=== PATIENT | female | born 1975 | race Caucasian/White ===

== ENCOUNTER 2017-08-19 22:52 | Emergency (ER) | payer OTHER ==
[2017-08-19 23:08] VITALS: BMI 18.6
--- NOTE | 2017-08-20 00:17 | PDOC ---
History of Present Illness - General History Source: Patient Exam Limitations: No Limitations <Heidi Mattson - Last Filed: 08/20/17 00:47> - History of Present Illness Initial Comments: 08/20/17 00:17 42yo F who presents to the ED via EMS after she felt weak. She states she is on a "water fast" on day 20 of her usual 30-40 days when she was talking with friends and felt weak. Her friends became concerned and called the ambulance which brought her here. Pt endorses some lightheadedness and weakness currently. Pt states she is [employer] and normally worships with these water fasts and has done so in the past. Pt reluctant to stay, however is okay with some basic labs for assessment of her sodium and electrolytes. Denies any headache, SOB, CP/discomfort, abdominal pain, dysuria, and polyuria. She denies wanting to hurt herself or others. <Doug Marino - Last Filed: 08/20/17 05:06> - General Chief Complaint: Loss of Appetite Stated Complaint: WEAKNESS Time Seen by Provider: 08/20/17 00:09 Past History <SrinivasanHeidi - Last Filed: 08/20/17 00:47> - Past Medical History Anemia: No Asthma: No Dementia: No Diabetes: No GI Disorders: No Disorders: No Liver Disease: No Seizures: No Thyroid Disease: No - Suicide/Smoking/Psychosocial Hx Smoking History: Never smoked Have you smoked in the past 12 months: No Information on smoking cessation initiated: No Hx Alcohol Use: No Drug/Substance Use Hx: No Substance Use Type: None Hx Substance Use Treatment: No <Doug Marino - Last Filed: 08/20/17 05:06> - Past Medical History Allergies/Adverse Reactions: Allergies Allergy/AdvReac Type Severity Reaction Status Date / Time No Known Allergies Allergy Verified 08/19/17 23:08 Home Medications: Ambulatory Orders NK [No Known Home Medication] 08/22/15 Review of Systems - Review of Systems Constitutional: Yes: Weakness, Other (Significant weight loss). No: Chills, Fever, Night Sweats HEENTM: No: Blurred Vision, Nose Congestion, Throat Pain Respiratory: No: Cough, Shortness of Breath, Wheezing Cardiac (ROS): Yes: Lightheadedness. No: Chest Pain, Palpitations, Syncope, Chest Tightness ABD/GI: No: Abdominal Distended, Constipated, Nausea, Vomiting, Abdominal cramping : No: Dysuria, Frequency, Hematuria Musculoskeletal: No: Back Pain, Neck Pain Psychiatric: No: Anxiety, Depression, Frequent Crying, Stressors <Doug Marino - Last Filed: 08/20/17 05:06> *Physical Exam - Vital Signs Last Vital Signs Temp Pulse Resp BP Pulse Ox 97.5 F L 92 H 16 114/78 98 08/19/17 23:01 08/19/17 23:01 08/19/17 23:01 08/19/17 23:01 08/19/17 23:01 <Heidi Mattson - Last Filed: 08/20/17 00:47> - Vital Signs Last Vital Signs Temp Pulse Resp BP Pulse Ox 97.5 F L 92 H 16 114/78 98 08/19/17 23:01 08/19/17 23:01 08/19/17 23:01 08/19/17 23:01 08/19/17 23:01 - Physical Exam Comments: 08/20/17 00:29 GEN: NAD, awake, alert and oriented x3, cachectic HEENT: EOMI, VELVET, sclera anicterica, moist mucosa NECK: No JVD LUNGS: CTA b/l CARDIAC: RRR, no murmurs appreciated ABD: Soft, NT/ND, no rebound, no guarding, no hepatomegaly appreciated EXT: 2+ DP pulses, no edema Psych: Jovial, normal speech pattern and logic. Fluent and organized speech. <Doug Marino - Last Filed: 08/20/17 05:06> ED Treatment Course - LABORATORY CBC & Chemistry Diagram: 08/20/17 00:33 08/20/17 00:33 <Heidi Mattson - Last Filed: 08/20/17 00:47> - LABORATORY CBC & Chemistry Diagram: 08/20/17 00:33 08/20/17 00:33 <Doug Marino - Last Filed: 08/20/17 05:06> Medical Decision Making - Medical Decision Making 08/20/17 00:25 CBC, CMP, Mg, Phos 08/20/17 02:10 CMP showing increased Cr to 1.3 (baseline 0.9) with BUN 20 UA showing 1+ ketones, many RBC, no WBC or leuk esterase --Menses was last week explaining RBC --Ketones most likely poor diet and some dehydration in setting of CMP --D5LR @100cc/hr <Doug Marino - Last Filed: 08/20/17 05:06> *DC/Admit/Observation/Transfer <Heidi Mattson - Last Filed: 08/20/17 00:47> - Discharge Dispostion Admit: No <Doug Marino - Last Filed: 08/20/17 05:06> Diagnosis at time of Disposition: Weakness - Discharge Dispostion Disposition: HOME Condition at time of disposition: Stable - Referrals Referrals: Ashley Castillo MD [Primary Care Provider] - - Patient Instructions Additional Instructions: You were seen in the ED due to weakness. We ran labs and did not see any electrolyte abnormalities, however we saw some dehydration as evidenced by your kidney tests and urine analysis. You received some fluids to help with your dehydration. We medically recommend eating a balanced diet and to avoid from only water fasts. It is important to provide energy for your muscles and other tissues in the form of nutrition. Please return to the ED for evaluation if you feel worsening weakness or there are other concerning symptoms. - Post Discharge Activity
[2017-08-20 00:38] LABS: HEMATOCRIT 46.3 % (32.4-45.2); HEMOGLOBIN 16.2 GM/dL (10.7-15.3); MCH 31.3 pg (25.7-33.7); MCHC 34.9 g/dl (32.0-36.0); MEAN CELL VOLUME 89.6 fl (80-96); MEAN PLT VOLUME 8.9 fl (7.5-11.1); PLATELET COUNT 224 K/MM3 (134-434); RBC 5.17 M/mm3 (3.60-5.2); RDW 12.2 % (11.6-15.6); WHITE BLOOD COUNT 10.3 K/mm3 (4.0-10.0)
--- NOTE | 2017-08-20 00:54 | PDOC ---
Attending Attestation - HPI HPI: 08/20/17 01:18 The patient is a 42-year-old female, with no significant past medical history, who presents to the ED with loss of appetite and weakness. The patient states that she is on day 20 of a "water fast." The patient is [employer] and normally worships by water fasting; she usually fasts for approximately 30-40 days. EMS was called by the patients friends because they were concerned about her being weak and lightheaded. On exam, the patient is still experiencing these symptoms. The patient denies any chest pain or shortness of breath. Denies any fever, chills nausea, vomiting, or diarrhea. Allergies: NKA PCP: Dr. Castillo - Physicial Exam PE: 08/20/17 01:19 GENERAL: Well developed, well nourished. Awake and alert. No acute distress. HEENT: Normocephalic, atraumatic. PERRLA, EOMI. No conjunctival pallor. Sclera are non- icteric. Moist mucous membranes. Oropharynx is clear. NECK: Supple. Full ROM. No JVD. Carotid pulses 2+ and symmetric, without bruits. No thyromegaly. No lymphadenopathy. CARDIOVASCULAR: Regular rate and rhythm. No murmurs, rubs, or gallops. Distal pulses are 2+ and symmetric. PULMONARY: No evidence of respiratory distress. Lungs clear to auscultation bilaterally. No wheezing, rales or rhonchi. ABDOMINAL: Soft. Non-tender. Non-distended. No rebound or guarding. No organomegaly. Normoactive bowel sounds. MUSCULOSKELETAL Normal range of motion at all joints. No bony deformities or tenderness. No CVA tenderness. EXTREMITIES: No cyanosis. No clubbing. No edema. No calf tenderness. SKIN: Warm and dry. Normal capillary refill. No rashes. No jaundice. NEUROLOGICAL: Alert, awake, appropriate. PSYCHIATRIC: Cooperative. Good eye contact. Appropriate mood and affect. <Heidi Mattson - Last Filed: 08/20/17 01:17> - Resident Resident Name: Doug Marino - Medical Decision Making 08/20/17 19:45 Pt treated and released <Mingo Aviles - Last Filed: 08/20/17 19:46> Attestations - Attestations 08/20/17 01:21 Documentation prepared by Heidi Mattson, acting as medical registrar for Mingo Aviles MD. <Heidi Mattson - Last Filed: 08/20/17 01:17>
[2017-08-20 01:04] LABS: ALBUMIN 3.7 g/dl (3.4-5.0); ANION GAP 18 (8-16); BILIRUBIN,TOTAL 0.8 mg/dL (0.2-1.0); BLOOD UREA NITROGEN 20 mg/dL (7-18); CALCIUM 9.4 mg/dL (8.5-10.1); CHLORIDE 98 mmol/L (98-107); CO2 24 mmol/L (21-32); CREATININE 1.3 mg/dL (0.55-1.02); GLUCOSE,RANDOM 103 mg/dL (74-106); PHOSPHOROUS 3.1 mg/dL (2.5-4.9); POTASSIUM 4.4 mmol/L (3.5-5.1); SGOT/AST 16 U/L (15-37); SGPT/ALT 14 U/L (12-78); SODIUM 140 mmol/L (136-145); TOT PROT 7.5 g/dl (6.4-8.2)
[2017-08-20 01:05] LABS: ALK PHOS 85 U/L (45-117)
[2017-08-20 01:39] LABS: URINE APPEARANCE TURBID; URINE BILIRUBIN NEGATIVE (<2.0 mg/dL); URINE BLOOD 1+ (NEGATIVE); URINE COLOR YELLOW; URINE GLUCOSE (UA) NEGATIVE (NEGATIVE); URINE KETONE 2+ (NEGATIVE); URINE LEUK ESTERASE NEGATIVE (NEGATIVE); URINE NITRITE NEGATIVE (NEGATIVE)
[2017-08-20 01:42] LABS: URINE PROTEIN 2+ (NEGATIVE)
[2017-08-20 01:47] LABS: AMORP URATES FEW /hpf (NONE SEEN); URINE MUCUS MANY
[2017-08-20] MEDS ORDERED: DEXTROSE 5%-LACTATED RINGERS 1,000 ML IV SCH (02:15)
[2017-08-20 07:00] VITALS: BP 109/74; PULSE 74; TEMP 98.4
== END 2017-08-20 07:04 | disposition home or self-care (01) ==
LOC: SUPCPDRO 22:52 → JER 22:52
PROC: 3E0337Z Introduction of Electrolytic and Water Balance Substance into Peripheral Vein, Percutaneous Approach (ICD-10-PCS; principal; 2017-08-19)
DX: R53.1 Weakness (principal)
CPT/HCPCS: 36415; 80053; 81003; 81015; 83735; 84100; 84703; 85027; 99282-25

== ENCOUNTER 2022-04-24 18:40 | Emergency (ER) | payer OTHER ==
[2022-04-24 19:38] VITALS: BP 90/60; PULSE 98; RESP 18; TEMP 98.2; BMI 20.4
[2022-04-24] MEDS ORDERED: LIDOCAINE 5% TOPICAL PATCH TP ONE (20:26)
[2022-04-24] MEDS ORDERED: ACETAMINOPHEN 500 MG TABLET (FP) PO ONE (20:26)
[2022-04-24] MEDS ORDERED: diazePAM 2 MG TABLET PO ONE (20:27)
[2022-04-24] MEDS ORDERED: LIDOCAINE 5% TOPICAL PATCH ONE (20:48)
[2022-04-24] MEDS ORDERED: ACETAMINOPHEN 325 MG TABLET (FP) ONE (20:48)
[2022-04-24] MEDS ORDERED: diazePAM 2 MG TABLET ONE (20:48)
[2022-04-24] MEDS ORDERED: DEXAMETHASONE SOD PHOSPHATE 4 MG/1 ML VIAL IM ONE (21:56)
[2022-04-24] MEDS ORDERED: LIDOCAINE PATCH REMOVAL MC SCH (22:00)
[2022-04-24] MEDS ORDERED: DEXAMETHASONE SOD PHOSPHATE 10 MG/1 ML VIAL ONE (22:22)
[2022-04-24] MEDS ORDERED: KETOROLAC TROMETHAMINE 30 MG/1 ML VIAL IM ONE (22:22)
[2022-04-24] MEDS ORDERED: KETOROLAC TROMETHAMINE 30 MG/1 ML VIAL ONE (22:27)
== END 2022-04-24 23:33 | disposition home or self-care (01) ==
LOC: JER 18:40
PROC: 3E023GC Introduction of Other Therapeutic Substance into Muscle, Percutaneous Approach (ICD-10-PCS; principal; 2022-04-24)
DX: M25.552 Pain in left hip (principal)
CPT/HCPCS: 72170-TC-FY; 73521-TC-FY; 73552-TC-LT-FY; 99284-25